=== PATIENT | male | born 2000 | race Caucasian/White ===

== ENCOUNTER 2021-06-17 19:38 | Emergency (ER) | payer OTHER ==
[~2021-06-17] VITALS: Ht 177.8 cm; Wt 77.0 kg
[2021-06-17] MEDS ORDERED: LIDOCAINE 1% 10 ML VIAL ID ONE (20:30)
[2021-06-17 20:46] VITALS: BP 133/69
[2021-06-17] MEDS ORDERED: IBUPROFEN 600 MG TABLET PO ONE (21:00)
[2021-06-17] MEDS ORDERED: PERTUSS(ACELL),DIPH,TET VAC/PF 0.5 ML SYRINGE IM. ONE (21:00)
== END 2021-06-17 21:36 ==
LOC: EMS 19:41
DX: S81.811A Laceration without foreign body, right lower leg, initial encounter (principal); S93.401A Sprain of unspecified ligament of right ankle, initial encounter; W18.39XA Other fall on same level, initial encounter; Y93.89 Activity, other specified; Y92.89 Other specified places as the place of occurrence of the external cause; Y99.8 Other external cause status
CPT/HCPCS: 12002; 73610; 90471; 90715; 99283; J3490